=== PATIENT | female | born 1990 | race Caucasian/White ===

== ENCOUNTER 2019-02-09 14:38 | Outpatient (CLI) | payer BC ==
[2019-02-09 15:25] VITALS: BP 133/76; PULSE 91; RESP 16; TEMP 99.3
--- NOTE | 2019-03-09 08:05 | P.MSEPDOC ---
Presenting Problems - Arrival Data Date of Arrival on Unit: 02/09/19 Time of Arrival on Unit: 14:45 Mode of Transport: Ambulatory - Complaint OB-Reason for Admission/Chief Complaint: Decreased Movement Comment: pt EDC 05/27/2019 Pt is 24 5/7 weeks gestation c/o decreased movement Medical History - Information : 1 Para: 0 Term: 0 : 0 Abortions: Spontaneous or Elective: 0 Number of Living Children: 0 - Gestational Age Gestational Age by GAL (wks/days): 24 Weeks and 5 Days Review of Systems - Review of Systems Constitutional: No problems Breast: No problems ENT: No problems Cardiovascular: No problems Respiratory: No problems Gastrointestinal: No problems Genitourinary: No problems Musculoskeletal: No problems Neurological: No problems Skin: No problems Vital Signs - Temperature Temperature: 99.3 F Temperature Source: Oral - Pulse Brachial Pulse Rate: 91 Pulse Assessment Method: Automatic Cuff - Respirations Respiratory Rate: 16 Oxygen Delivery Method: Room Air O2 Sat by Pulse Oximetry: 98 - Blood Pressure Right Arm Blood Pressure: 133/76 Blood Pressure Mean: 95 Blood Pressure Source: Automatic Cuff Medical Screen Scoring (Pre) - Cervical Exam Dilation: Exam Deferred Effacement: Exam Deferred Membranes: Intact - Uterine Contractions Frequency: N/A Duration: N/A Intensity: N/A - Maternal Vital Signs Maternal Temperature: N/A Maternal Blood Pressure: N/A Signs of Preeclampsia: N/A Maternal Respirations: N/A - Maternal Trauma Maternal Trauma: N/A - Assessment - Baby A Baseline FHR: 140 Heart Rate - NICHD Category: Category I (Normal) = 0 NST: Reactive Position: N/A Station: N/A - Total Score - Baby A Total Score - Baby A: 0 - Total Score - Baby B Total Score - Baby B: 0 - Total Score - Baby C Total Score - Baby C: 0 - Level of Risk - Baby A Level of Risk - Baby A: Low (0-5) - Level of Risk - Baby B Level of Risk - Baby B: Low (0-5) - Level of Risk - Baby C Level of Risk - Baby C: Low (0-5) Medical Screen Scoring (Post) - Cervical Exam Dilation: Exam Deferred Effacement: Exam Deferred Membranes: Intact - Uterine Contractions Frequency: N/A Duration: N/A - Maternal Vital Signs Maternal Temperature: N/A Signs of Preeclampsia: N/A Maternal Respirations: N/A - Maternal Trauma Maternal Trauma: N/A - Assessment - Baby A Heart Rate: 140 Heart Rate - NICHD Category: Category I (Normal) = 0 NST: Reactive Position: N/A Station: N/A - Total Score Total Score - Baby A: 0 Total Score - Baby B: 0 Total Score - Baby C: 0 - Post Treatment Level of Risk Post Treatment Level of Risk - Baby A: Low (0-5) Post Treatment Level of Risk - Baby B: Low (0-5) Post Treatment Level of Risk - Baby C: Low (0-5) Physician Notification (Post) - Physician Notified Physician Notified Date: 02/09/19 Physician Notified Time: 16:00 Spoke With: dr corinne Martinez Order Received: Yes - Notification Comment Comment: may discharge to home undelivered. pt had reacrive NST Disposition - Disposition OB Disposition: Physician follow up in office, Discharge to home Discharge Date: 02/09/19 Discharge Time: 16:00 I agree with the RN Medical Screening Exam: Yes Risk & Benefit of care provided described in d/c instruction: Yes Diagnosis: RELATED CONDITIONS, UNSPECIFIED, SECOND TRIMESTER
== END 2019-02-09 16:00 | disposition home or self-care (01) ==
LOC: FBPOP 14:38
PROVIDERS: ATTEND Obstetrics & Gynecology
DX: O26.92 Pregnancy related conditions, unspecified, second trimester (principal); Z3A.24 24 weeks gestation of pregnancy
CPT/HCPCS: 99213

== ENCOUNTER 2019-05-21 10:04 | Inpatient (IN) | payer BC, OTHER ==
[2019-05-15 15:23] VITALS: BMI 35.6
[2019-05-21] MEDS ORDERED: CITRIC ACID-SODIUM CITRATE 15 ML CUP PO ONE (10:20)
[2019-05-21] MEDS: LACTATED RINGERS 1,000 ML IV ONE ×2 (11:30→16:40)
--- NOTE | 2019-05-21 11:40 | P.HPOB ---
History of Present Illness H&P Date: 05/21/19 This is a 29-year-old white female 1 para 0 EDC 05/27/2019 at 39 and one sevenths weeks' gestation. Patient has a history of bicornuate uterus, in the right horn, breech presentation. Version is therefore contraindicated, she presents today for primary low transverse section for same. Fetus is been active throughout the . She denies vaginal bleeding or fluid leakage. Past medical history is significant for childhood asthma. Past surgical history blood clot removed from behind the ovary in 1989. Current medications vitamins daily. ALLERGIES none known. Social history patient is a airline pilot, father of the baby is present and involved, they are not . One half pack per day tobacco noted, alcohol and drug use denied. history significant for blood type O-, antibody screen negative. Hemoglobin 12.5. Pap smear, gonorrhea and chlamydia cultures, group B strep cultures, hepatitis B surface antigen, HIV testing, VDRL all negative. One-hour Glucola 107. On exam this is a pleasant white female who is 5 foot 3 inches, 208 pounds, blood pressure 136/77 on admission, vital signs otherwise stable and patient is afebrile. The general physical exam is within normal limits. Chest is clear in all jamil. Extremities reveal no edema. is breech to Colin's maneuvers, heart rate consistent with reactive NST. Impression: 39 and one sevenths weeks intrauterine , breech presentation, circumvallate placenta, in the right horn of a bicornuate uterus. Plan: We'll proceed with primary low transverse section. Risks benefits and alternatives of all been discussed in detail. All questions answered. Review of Systems Constitutional: Reports as per HPI Past Medical History Past Medical History: Asthma Additional Past Medical History / Comment(s): CHILDHOOD ASTHMA-NO PROBLEMS AT THIS TIME History of Any Multi-Drug Resistant Organisms: None Reported Additional Past Surgical History / Comment(s): blood clot removed from ovary as a child Past Anesthesia/Blood Transfusion Reactions: No Reported Reaction Past Psychological History: No Psychological Hx Reported Smoking Status: Former smoker Past Alcohol Use History: None Reported, Occasional Additional Past Alcohol Use History / Comment(s): QUIT SMOKING 10/2018. NO ALCOHOL AT THIS TIME Past Drug Use History: None Reported - Past Family History Mother Family Medical History: No Reported History Medications and Allergies Home Medications Medication Instructions Recorded Confirmed Type Pnv,Calcium 72/Iron/Folic Acid 1 each PO DAILY 02/09/19 05/21/19 History [ Plus Tablet] Allergies Allergy/AdvReac Type Severity Reaction Status Date / Time No Known Allergies Allergy Verified 05/21/19 10:19 Exam Vital Signs Temp Pulse Resp BP Pulse Ox 05/21/19 10:19 97.1 F L 95 16 136/77 98 Intake and Output 05/20/19 05/21/19 05/21/19 22:59 06:59 14:59 Other: Weight 94.347 kg See dictation under HPI please Assessment and Plan Assessment: 39 and one sevenths week intrauterine , breech presentation, bicornuate uterus, in the right horn, circumvallate placenta. Plan: For primary low transverse section at this time. Time with Patient: Less than 30
[2019-05-21] MEDS ORDERED: OXYTOCIN 10 UNIT/ML 1 ML VIAL ONE (11:42)
[2019-05-21] MEDS ORDERED: fentaNYL (PF) 50 MCG/ML 2 ML AMP ONE (11:42)
[2019-05-21] MEDS ORDERED: ONDANSETRON 4 MG/2 ML VIAL ONE (11:42)
[2019-05-21] MEDS ORDERED: MORPHINE SULFATE (PF) 0.3 MG/0.3 ML SYR ONE (11:42)
[2019-05-21] MEDS ORDERED: PHENYLEPHRINE-0.9% NACL SYG 1 MG/10 ML SYRINGE ONE (11:42)
[2019-05-21] MEDS ORDERED: KETOROLAC 30 MG/ML 1 ML VIAL ONE (11:42)
[2019-05-21] MEDS ORDERED: MORPHINE SULFATE 2 MG/ML SYRINGE IVP PRN (12:16)
[2019-05-21] MEDS ORDERED: NALOXONE 0.4 MG/ML 1 ML VIAL IV PRN (12:16)
[2019-05-21] MEDS ORDERED: KETOROLAC 30 MG/ML 1 ML VIAL IVP PRN (12:16)
[2019-05-21] MEDS ORDERED: diphenhydrAMINE 50 MG/ML 1 ML VIAL IVP PRN ×2 (12:16→12:36)
[2019-05-21] MEDS ORDERED: NALBUPHINE 10 MG/ML (1 ML AMP) IV PRN (12:16)
[2019-05-21 12:27] LABS: Basophils % (A) 0 %; Eosinophils # (A) 0.1 k/uL (0-0.7); Eosinophils % (A) 1 %; HCT 35.4 % (34.0-46.0); HGB 12.3 gm/dL (11.4-16.0); Lymphocytes % (A) 12 %; MCH 31.7 pg (25.0-35.0); MCHC 34.9 g/dL (31.0-37.0); Mean Platelet Volume 9.3; Monocytes # (A) 0.4 k/uL (0-1.0); Monocytes % (A) 4 %; Neutrophils # (A) 7.3 k/uL (1.3-7.7); Neutrophils % (A) 82 %; Platelet Count 196 k/uL (150-450); RBC 3.89 m/uL (3.80-5.40); RDW 13.9 % (11.5-15.5); WBC 8.8 k/uL (3.8-10.6)
[2019-05-21 12:32] LABS: Amphetamine Screen,Urine Not Detected (NotDetected); Barbiturate Screen,Urine Not Detected (NotDetected); Benzodiazepines Screen,Urine Not Detected (NotDetected); Cocaine Screen,Urine Not Detected (NotDetected); Methadone Screen, Urine Not Detected (NotDetected); Opiate Screen,Urine Not Detected (NotDetected); Oxycodone Screen, Urine Not Detected (NotDetected); Phencyclidine Screen,Urine Not Detected (NotDetected); Tricyclic Antidepressant,Urine Not Detected (NotDetected); Urn Cannabinoid Scrn Not Detected (NotDetected)
[2019-05-21] MEDS ORDERED: SIMETHICONE 80 MG CHEWABLE PO PRN (12:36)
[2019-05-21] MEDS ORDERED: ONDANSETRON 4 MG/2 ML VIAL IVP PRN (12:36)
[2019-05-21] MEDS ORDERED: METOCLOPRAMIDE 5 MG/ML 2 ML VIAL IVP PRN (12:36)
--- NOTE | 2019-05-21 12:36 | P.OP ---
Date of Procedure: 05/21/19 Preoperative Diagnosis: 39-1/7 weeks intrauterine , breech presentation, in the right horn of a bicornuate uterus, circumvallate placenta Postoperative Diagnosis: Same, liveborn female breech. Procedure(s) Performed: Primary low transverse section. Anesthesia: spinal Surgeon: Sumaya Newell Equipment Service Technician #1: Jamal Fox Estimated Blood Loss (ml): 600 IV fluids (ml): 1,400 Urine output (ml): 100 Pathology: other (Placenta) Condition: stable Disposition: PACU Description of Procedure: Patient is brought to the operating suite where a spinal with Duramorph is administered without difficulty per the anesthesia section. She's placed in the dorsal supine position with left lateral uterine displacement. The abdomen is prepped and draped in the usual sterile fashion, Diop catheter to direct drainage. The appropriate timeout is performed to assure proper patient and procedural identification. Antibiotics are given. The analgesia is checked and noted to be adequate. A low transverse uterine incision is made in this is carried down through the subcutaneous tissue to the fascia. Fascia is isolated, scored, extended bilaterally with curved Murray scissors. There is no bowel or bladder involvement. The bladder flap is taken down with Metzenbaum scissors and at all times the bladder is Well from the operative field to avoid bladder and/or ureteral injury. Bladder blade is placed over the dome of the bladder. A low transverse uterine incision is made and carried down. Artificial amniorrhexis reveals clear fluid. The incision is extended with blunt dissection. The breech is delivered in a alanis breech position, sacrum anterior. Legs are removed by a Pinard maneuver. The trunk is then wrapped with a blue towel that is wet and wrung out. Pinard maneuver is used to deliver the upper extremities and the head is delivered in a flexed position. Patient is officially delivered of a liveborn female at 05/21/2001 hours. Umbilical cord is doubly clamped and ligated, she is handed to waiting nurses for evaluation where scores of 9 and 9 at one and 5 minutes respectively are given. The placenta is delivered manually, it is inspected and noted to be intact with trivascular cord. The uterus is then externalized and massaged. It is swept clean with a sterile sponge, both cavities, to assure no retained products of conception. The uterus is closed in a two-step fashion, first layer running locking with 0 Vicryl, second layer imbricated with 0 Vicryl. Excellent reapproximation is noted. Bilateral tubes and ovaries are inspected and noted to be normal. The abdomen is suctioned with suction on guard posterior to the uterus. Uterus is gently placed back into the abdominal cavity. Bilateral gutters are inspected and cleaned. Again the uterine incision is clean and dry. Peritoneum is allowed to close by secondary intention. Fascia is closed in a running stitch of 0 Vicryl with over ligation in the midline. Subcutaneous tissue is irrigated, noted to be clean and dry. It is reapproximated with 3-0 Vicryl in a running stitch. 4-0 undyed Vicryl issues for final skin closure. All sponge needle and enhancement counts are correct at the end of the procedure. Patient is brought back to the recovery room in very good condition with stable vital signs including blood pressure 127/79, pulse 80. Diop is noted to be draining clear urine.
[2019-05-21] MEDS: KETOROLAC 30 MG/ML 1 ML VIAL IVP PRN (23:24)
[2019-05-21] MEDS: SENNOSIDES-DOCUSATE SODIUM 1 EACH TAB PO SCH (23:25)
[2019-05-22] MEDS ORDERED: Rhogam IMMUNE GLOBULIN 1,500 UNIT/1 ML IM ONE (04:10)
--- NOTE | 2019-05-22 07:31 | P.PN ---
Subjective Progress Note Date: 05/22/19 Principal diagnosis: Postoperative day #1 Positive flatus. Pain well controlled. No complaints. Objective - Vital Signs Vital signs: Vital Signs Temp 98.0 F 05/22/19 04:00 Pulse 62 05/22/19 04:00 Resp 16 05/22/19 04:00 BP 110/58 05/22/19 04:00 Pulse Ox 100 05/22/19 00:00 Intake & Output 05/21/19 05/22/19 05/22/19 18:59 06:59 18:59 Intake Total 1100 Output Total 1400 Balance 1100 -1400 Weight 94.347 kg Intake: Intake, IV Titration 1100 Amount Lactated Ringers 1,000 ml 1000 @ 4000 mls/hr IV .Q15M ONE Rx#:[id number] ceFAZolin 2 gm In Sodium 100 Chloride 0.9% 50 ml @ 100 mls/hr IVPB ONCE ONE Rx# :[id number] Output: Urine 1400 Other: # Voids 1 - Constitutional General appearance: Present: average body habitus, cooperative - EENT Eyes: Present: PERRLA ENT: Present: hearing grossly normal - Neck Neck: Present: normal ROM Thyroid: bilateral: normal size - Respiratory Respiratory: bilateral: CTA - Cardiovascular Rhythm: regular - Gastrointestinal General gastrointestinal: Present: normal bowel sounds - Genitourinary Genitourinary Comment(s): Incision clean and dry, intact, Steri-Strips applied. - Integumentary Integumentary Comment(s): Fundus firm, midline, symmetric, 18 week size Integumentary: Present: normal, normal turgor - Neurologic Neurologic: Present: CNII-XII intact - Musculoskeletal Musculoskeletal: Present: gait normal, strength equal bilaterally - Labs CBC & Chem 7: 05/21/19 10:35 Assessment and Plan Assessment: Doing well postoperative day #1 Plan: Continue postoperative care. Likely discharge home tomorrow. Time with Patient: Less than 30
[2019-05-22] MEDS: SENNOSIDES-DOCUSATE SODIUM 1 EACH TAB PO SCH ×2 (08:11→19:26)
[2019-05-22 08:39] LABS: Basophils % (A) 0 %; Eosinophils # (A) 0.1 k/uL (0-0.7); Eosinophils % (A) 1 %; HCT 32.5 % (34.0-46.0); HGB 11.3 gm/dL (11.4-16.0); Lymphocytes # (A) 0.9 k/uL (1.0-4.8); Lymphocytes % (A) 8 %; MCH 31.8 pg (25.0-35.0); MCHC 34.7 g/dL (31.0-37.0); MCV 91.6 fL (80.0-100.0); Mean Platelet Volume 9.1; Monocytes # (A) 0.5 k/uL (0-1.0); Monocytes % (A) 4 %; Neutrophils # (A) 9.6 k/uL (1.3-7.7); Neutrophils % (A) 86 %; Platelet Count 178 k/uL (150-450); RBC 3.55 m/uL (3.80-5.40); RDW 14.2 % (11.5-15.5); WBC 11.2 k/uL (3.8-10.6)
[2019-05-22] MEDS: KETOROLAC 30 MG/ML 1 ML VIAL IVP PRN (08:40)
--- NOTE | 2019-05-22 11:16 | P.PN ---
Progress Note - Text Progress Note Date: 05/22/19 29 yo female status post . Post-op day #1. Patient received intrathecal Duramorph. Patient was seen today, sitting up in bed no complaints, pain VAS score 0/10, no headache, no itching, no nausea and vomiting. Assessment and plan: Doing well in general no complications from anesthesia.
[2019-05-22] MEDS: IBUPROFEN 600 MG TAB PO PRN (16:22)
[2019-05-22] MEDS ORDERED: HYDROcodone/APAP 7.5-325MG 1 EACH TAB PO PRN (17:05)
[2019-05-22] MEDS ORDERED: ACETAMINOPHEN TAB 325 MG TAB PO PRN (17:05)
[2019-05-22] MEDS ORDERED: HYDROcodone/APAP 5-325MG 1 EACH TAB PO PRN (17:05)
[2019-05-23] MEDS: IBUPROFEN 600 MG TAB PO PRN ×2 (01:40→07:52)
[2019-05-23 08:05] VITALS: BP 115/77; PULSE 97; RESP 16; TEMP 98.1
[2019-05-23] MEDS: SENNOSIDES-DOCUSATE SODIUM 1 EACH TAB PO SCH ×2 (09:17→10:24)
--- NOTE | 2019-05-23 10:51 | P.DS ---
Providers Date of admission: 05/21/19 10:04 Expected date of discharge: 05/23/19 Attending physician: Sumaya Newell Primary care physician: Stated None - Discharge Diagnosis(es) (1) Status post section Current Visit: Yes Status: Acute Hospital Course: The patient is a 29-year-old 1 para 0 admitted at 39 and one sevenths weeks by good dating parameters. She is admitted for primary low-transverse section secondary to breech presentation. She does have a known bicornuate uterus with the in the right horn. Her was otherwise uncomplicated and group B strep status is negative. She was taken the operating room where she was delivered by section of a viable 7 lbs. 3 oz. baby girl with Apgars of 9 at 1 minute and 9 at 5 minutes with alanis breech presentation and standard breech maneuvers. The bicornuate uterus was confirmed intraoperatively. Her postoperative course was entirely unremarkable vital signs remaining stable and her temperature was afebrile throughout. She was deemed stable for discharge on post operative day #2 and was discharged home to follow-up in the office in 2 weeks for an incision check and 6 weeks routinely. Discharge instructions included calling for any significantly increased bleeding or foul-smelling lochia, significantly increased fever or abdominal pain, per ineal complaints, breast complaints, incisional complaints, or anything else that concerned her. She was additionally instructed to have nothing in the vagina for at least 6 weeks time to include intercourse and to abstain from any heavy lifting over the same period of time. She was last instructed to do no driving until off of all pain medications or 2 weeks' time, whichever came first. She understood her instructions and agrees to follow up as noted above. Discharge medications included continued vitamins as she has opted to breast-feed as well as a prescription for Tylenol No. 3, 1-2 by mouth every 6 hours when necessary pain, #20 dispensed with no refills. Maternal blood type is O- and cord blood was sent for evaluation for the necessity of RhoGAM prior to discharge. Rubella status is immune. Discharge hemoglobin and hematocrit were 11.3 and 32.5 respectively. Procedures: #1. Primary low-transverse section Patient Condition at Discharge: Good Plan - Discharge Summary Discharge Rx Participant: Yes New Discharge Prescriptions: No Action Pnv,Calcium 72/Iron/Folic Acid [ Plus Tablet] 1 each PO DAILY Discharge Medication List Pnv,Calcium 72/Iron/Folic Acid [ Plus Tablet] 1 each PO DAILY 02/09/19 [History] Follow up Appointment(s)/Referral(s): Sumaya Newell MD [STAFF PHYSICIAN] - 2 Weeks Patient Instructions/Handouts: (GEN) Discharge Disposition: HOME SELF-CARE
== END 2019-05-23 11:00 | disposition home or self-care (01) | DRG 788 ==
LOC: 4FBP 10:04
PROVIDERS: ADMIT Obstetrics & Gynecology; ATTEND Obstetrics & Gynecology
PROC: 10D00Z1 Extraction of Products of Conception, Low, Open Approach (ICD-10-PCS; principal; 2019-05-21 11:48)
DX: O32.1XX0 Maternal care for breech presentation, not applicable or unspecified (principal); O34.03 Maternal care for unspecified congenital malformation of uterus, third trimester; O43.113 Circumvallate placenta, third trimester; Q51.3 Bicornate uterus; Z37.0 Single live birth; Z3A.39 39 weeks gestation of pregnancy; Z87.891 Personal history of nicotine dependence
CPT/HCPCS: 80306; 85025; 85461; 86850; 86900; 86901; 88307

== ENCOUNTER → 2020-12-26 | Outpatient (CLI) | payer OTHER ==
--- NOTE | 2020-12-26 13:34 | US ---
EXAMINATION TYPE: Transabdominal DATE OF EXAM: 12/26/2020 1:07 PM COMPARISON: CLINICAL HISTORY: O46.91 Antepartum hemorrhage, unspecified, first. Hx bicornuate uterus. No HCG or previous ultrasound. EXAM PERFORMED: Transvaginal (TV) and Transabdominal (TA) EXAM MEASUREMENTS: GESTATIONAL AGE / DATING Physician Established: Not yet established Dates by LMP: ( 7 weeks/2 days) EDC: 08/12/2021 Dates by First Scan: No previous this is first scan Dates by Current Scan for: (5 weeks/1 days) EDC: 08/27/2021 MATERNAL ANATOMY Uterus: Right horn= 9.8 x 2.5 x 3.6 cm Left horn= 10.4 x 2.2 x 3.2 cm Right Ovary: 3.2 x 1.8 x 2.5 cm Left Ovary: 3.0 x 2.3 x 2.2 cm Post CDS / Adnexa: no free fluid Presence of free fluid: no Presence of corpus luteal cyst: left ovary = 1.8 x 1.8 x 1.3 cm Presence of subchorionic bleed: no GESTATION / SURVEY CRL: Not visualized MSD: 0.6 cm (5 weeks/1 days) IUP: Possible small gestational sac visualized in left uterine horn Date of LMP: 11/05/2020, Beta HcG (if available): Not available at this time Bicornuate uterus with possible small gestational sac visualized in the left uterine horn. No CRL or YS seen. IMPRESSION: 1. There may be a small early gestational sac within a (left) bicornuate uterus. Mean sac diameter montanez ggests a gestational age of 5 weeks 1 day. Yolk sac and pole with cardiac activity are not evid ent at this time. Correlation with beta-hCG and follow-up is recommended.
== END | disposition home or self-care (01) ==
LOC: RADUSWWP 12:29
PROVIDERS: ATTEND Obstetrics & Gynecology
DX: O46.91 Antepartum hemorrhage, unspecified, first trimester (principal); Z3A.01 Less than 8 weeks gestation of pregnancy
CPT/HCPCS: 76801; 76817